=== PATIENT | male | born 1970 | race African-American/Black ===

== ENCOUNTER 2018-07-10 21:01 | Inpatient (IN) | payer OTHER ==
[~2018-07-10] VITALS: Ht 175.3 cm; Wt 97.5 kg
[2018-07-10 21:00] VITALS: BP 131/86
[2018-07-10 21:15] VITALS: BP 135/81
[2018-07-10 21:30] VITALS: BP 134/72
[2018-07-10 21:45] VITALS: BP 147/71
[2018-07-10 23:00] VITALS: BP 113/84
[2018-07-11] VITALS (24 sets, daily range): BP systolic 106–144; BP diastolic 64–94
[2018-07-11 02:59] LABS: CALCIUM 9.2 mg/dL (8.5-10.1); CREATININE 1.2 mg/dL (0.7-1.3); GFR 78.5; MAGNESIUM 2.1 mg/dL (1.8-2.4); POTASSIUM 3.8 mmol/L (3.5-5.1)
--- NOTE | 2018-07-11 05:27 | NUR ---
pt admitted at 2100 to ICU. Pt oriented to ICU unit and connected to monitor. Pt is pleasant and cooperative. All vital signs are stable NIH stroke scale completed on arrival with a score of 6. Pt is not on any drips of medications currently, will continue to monitor.
[2018-07-11 10:35] LABS: C-REACTIVE PROTEIN 1.8 mg/L (0-3.3)
[2018-07-11 10:36] LABS: CHOLESTEROL/HDL RATIO 6.1
[2018-07-11 10:43] LABS: HEMATOCRIT 45.9 % (39.0-53.0); HEMOGLOBIN 15.8 g/dL (13.0-17.5); RED BLOOD COUNT 5.46 x10^6/uL (4.30-5.70); RED CELL DISTRIBUTION WIDTH 13.8 % (11.5-14.5); WHITE BLOOD COUNT 4.3 x10^3/uL (4.0-11.0)
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
--- NOTE | 2018-07-11 13:42 | RAD ---
Clinical Indications: Left-sided hemiplegia. Exam : Carotid Duplex with Grayscale Ultrasound and Spectral and Color Doppler Analysis: PQRS Compliance Statement - Stenosis calculations for CT, MR and conventional angiography are based upon measurement of the distal ICA diameter in accordance with the NASCET methodology. Stenosis calculations for carotid ultrasound studies are derived from validated velocity criteria which are known to correlate with the NASCET methodology. Comparison study: None available. Findings: The common, internal and external carotid arteries were examined by grayscale, color and spectral Doppler ultrasound. Mild intimal thickening identified in the bilateral carotid bulbs and the proximal carotid arteries. Flow in both vertebral arteries was antegrade and normal. The following are the velocities and ratios in the carotid arteries on both sides: RIGHT ICA PV: 83cm/sec RIGHT CCA PV: 60cm/sec RIGHT ICA ED: 21cm/sec RIGHT IC/CCPV: 1.3 RIGHT VERTEBRAL: antegrade flow RIGHT % STENOSIS: Less than 50 percent LEFT ICA PV: 42cm/sec LEFT CCA PV: 114cm/sec LEFT ICA ED: 16cm/sec LEFT IC/CCPV: 0.3 LEFT VERTEBRAL: antegrade flow LEFT % STENOSIS: Less than 50 percent <50% ICA Stenosis: PSV < 125cm/s (EDV < 40cm/s; SVR < 2.0) 50-69% ICA Stenosis: PSV < 125-229cm/s (EDV 40-99cm/s; SVR 2.0-3.9) >70% ICA Stenosis: PSV > 230cm/s (EDV >100cm/s; SVR >4.0) Impression: No evidence of hemodynamically significant stenosis identified. Electronically signed by: Jorgito Mitchell MD (07/11/2018 1:39 PM) [facility]
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
--- NOTE | 2018-07-11 14:53 | NUR ---
Bedside Swallow Evaluation completed. Please refer to full report for additional information. Impressions: Mild-moderate oropharyngeal dysphagia w/ oral stage swallowing most significantly impacted by stroke. Pt w/ decreased ability to seal lips for retrieval and oral spill noted prior to swallow. Pt appears at low risk of aspiration for recommended diet of regular w/ thin liquids/no straws and swallow precautions. Pt able to recall swallow strategies and demonstrates ability to take small sips of thin liquids consistently w/o s/s aspiration. Aspiration risk is present w/ straw drinking of liquids d/t the effort required to retrieve fluid via straw and then pt's decreased control of liquid once achieved. Recommendations: Regular diet w/ thin liquids. No straws. Small drinks thin liquids, Sit upright 90*, small bites, alternated consistencies, slow rate, and upright after meals. Crush pills w/ puree. ST f/u for dysphagia. D/w [place], pt and guards, precautions posted.
--- NOTE | 2018-07-11 16:41 | EKG ---
[facility] [address] [place] [address] Test Date: 2018-07-11 Test Time: 16:32:19 Pat Name: GUILLERMO CHANEL Department: Room: [facility] Gender: M Seasonal Sales Associate: JESI : 1970 Requested By: OLVIN MACHADO Order Number: [id number] Reading MD: Deon Nolasoc Measurements Intervals [place] Rate: 83 P: 62 TX: 144 QRS: -28 QRSD: 92 T: 34 QT: 352 QTc: 419 Interpretive Statements SINUS RHYTHM LEFTWARD AXIS Electronically Signed On 07-31-2018 12:42:40 CDT by Deon Nolasco
[2018-07-11] MEDS: ATORVASTATIN CALCIUM 40 MG TABLET. PO SCH (21:07)
[2018-07-11] MEDS: ASPIRIN 325 MG TABLET PO SCH (21:07)
[2018-07-11] MEDS: LORazepam 0.5 MG TABLET PO PRN (22:46)
--- NOTE | 2018-07-11 23:56 | PN ---
DATE: 07/11/2018 SUBJECTIVE: The patient is a 48-year-old -Faroese male patient, an inmate at [facility], who presented yesterday to the Emergency Room with right-sided facial droop and left-sided weakness. CT scan was negative for intracranial hemorrhage and he was treated with TPA as his NIH score was 8. His CT angio was negative. He was transferred to [facility] as per protocol. When I saw him this morning, he was awake, alert, continued to have slurring of speech, but he is able to move his left upper and left lower extremity. He was seen by the Speech Therapy and apparently he continued to be high aspiration and therefore we will keep him n.p.o. PHYSICAL EXAMINATION: GENERAL: When I examined him this morning, he looked well and was clearly in no apparent respiratory distress, somewhat pale, but no jaundice, cyanosis, or thyromegaly. No jugular venous distension. No lower limb edema. VITAL SIGNS: Her heart rate was 73, blood pressure was 134/68, temperature was 98.4, respiratory rate was 15 and oxygen saturation was 99%. HEAD, EYES, EARS, NOSE AND THROAT: He is normocephalic, atraumatic. NECK: Supple. HEART: Showed normal first and second heart sounds with no gallop, rub or murmur. CHEST: Clear to auscultation. No crepitation or rhonchi. ABDOMEN: Distended, soft, nontender. No guarding or rigidity. No organomegaly. All hernial orifices intact. Bowel sounds normal. NEUROLOGIC: He was awake, alert, responding appropriately. He has continued to have left-sided facial droop and left-sided hemiparesis. 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 PLAN: To arrange for bilateral carotid Dopplers and echocardiogram with bubble study. Check his lipid profile. We have consulted the Physical Therapy, Occupational Therapy, Speech Therapy as well as the neurologist. OLVIN MACHADO MD DR: STEPHON/sulaiman JOB#: [id number] / [id number]
[2018-07-12] VITALS (15 sets, daily range): BP systolic 113–147; BP diastolic 68–100
[2018-07-12 04:24] LABS: HEMATOCRIT 45.9 % (39.0-53.0); HEMOGLOBIN 15.4 g/dL (13.0-17.5); RED BLOOD COUNT 5.46 x10^6/uL (4.30-5.70); RED CELL DISTRIBUTION WIDTH 13.5 % (11.5-14.5); WHITE BLOOD COUNT 4.6 x10^3/uL (4.0-11.0)
[2018-07-12 04:47] LABS: ALBUMIN 4.3 g/dL (3.4-5.0); ALBUMIN/GLOBULIN RATIO 1.2 (1.0-1.7); CALCIUM 9.6 mg/dL (8.5-10.1); GFR 96.9; POTASSIUM 3.7 mmol/L (3.5-5.1); TOTAL BILIRUBIN 1.6 mg/dL (0.2-1.0)
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
[2018-07-12] MEDS: ASPIRIN 325 MG TABLET PO SCH (09:28)
[2018-07-12] MEDS: LORazepam 0.5 MG TABLET PO PRN ×2 (09:38→20:55)
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
--- NOTE | 2018-07-12 13:57 | RAD ---
CT HEAD INDICATION: Left-sided weakness COMPARISON: 07/10/2018 Exposure: One or more of the following individualized dose reduction techniques were utilized for this examination: 1. Automated exposure control 2. Adjustment of the mA and/or kV according to patient size 3. Use of iterative reconstruction technique TECHNIQUE: 5 mm contiguous axial images were obtained from the skull base to the vertex in both bone and soft tissue algorithm. FINDINGS: No abnormal attenuation within the brain parenchyma. No evidence of acute intracranial hemorrhage. No extra-axial fluid collections. No mass effect or midline shift. Ventricular size is appropriate. Basal cisterns are patent. No fractures identified.Johnson-white differentiation is preserved.Globes and orbits are within normal limits. Paranasal sinuses and mastoid air cells are clear. IMPRESSION: No acute intracranial findings. Electronically signed by: Jorgito Mitchell MD (07/12/2018 1:54 PM) [facility]
--- NOTE | 2018-07-12 14:34 | NUR ---
Pt. transferred up to 6th floor from ICU around 1340. Pt. made comfortable and oriented to unit and hospital policies. Vital signs checked and head to toe assessment completed by this nurse. Pt. had a stomach spasm at time of assessment. Spasm and solid mass-like structure felt by this nurse. This nurse will call to inform MD. NIH stroke scale completed by 6S CN. Will continue to monitor.
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
--- NOTE | 2018-07-12 15:31 | NUR ---
MD notified about RUQ abdominal pain/spasm and palpable mass. Orders placed. Will continue to monitor.
[2018-07-12] MEDS ORDERED: IOHEXOL 240 MG/ML 50ML VIAL. PO ONE (19:30)
[2018-07-12] MEDS ORDERED: CONTRAST GIVEN. MC PRN (19:45)
--- NOTE | 2018-07-12 19:47 | RAD ---
CT ABD PEL W/ORAL CONTRST ONLY dated 07/12/2018 3:28 PM Indication: Pain and possible mass. Comparison: CT of the abdomen and pelvis without IV contrast 07/12/2018. Reason for exam: Abdominal pain and palpable mass in the right upper quadrant. Patient ingested oral contrast. No IV contrast was given. CT images were obtained. Exposure: One or more of the following individualized dose reduction techniques were utilized for this examination: 1. Automated exposure control 2. Adjustment of the mA and/or kV according to patient size 3. Use of iterative reconstruction technique. FINDINGS: The lung bases are clear. The liver and spleen are homogeneous in density and normal in configuration. Evaluation of the solid organs is limited without IV contrast. The kidneys show no mass or obstruction. There is a 3 mm calcination in the mid left kidney. The adrenal glands are not enlarged. The pancreas appears normal. No retroperitoneal or mesenteric adenopathy is seen. There is no apparent abdominal soft tissue mass or inflammatory process. Images through the pelvis show no abnormality of the distal ureters or bladder. No pelvic or inguinal adenopathy is seen. There is no apparent pelvic mass or inflammatory process. A normal appendix is thought to be seen extending medially from the cecum. IMPRESSION: No apparent acute abnormality. No evidence of abdominal mass. Technique: One or more of the following individualized dose reduction techniques were utilized for this examination: 1. Automated exposure control 2. Adjustment of the mA and/or kV according to patient size 3. Use of iterative reconstruction technique Findings: IMPRESSION: Electronically signed by: Alhaji Ferrari Jr., MD (07/12/2018 7:44 PM) [facility]
[2018-07-12] MEDS: ATORVASTATIN CALCIUM 40 MG TABLET. PO SCH (20:55)
--- NOTE | 2018-07-12 21:32 | PN ---
DATE: 07/12/2018 SUBJECTIVE: The patient is resting, propped up in bed, no apparent distress. He is definitely much improved. He is now able to eat and drink. His mobility has improved, although he continued to have left-sided facial droop. PHYSICAL EXAMINATION: GENERAL: When I examined him, he looked well and was clearly in no apparent respiratory distress. No pallor, jaundice, cyanosis, or thyromegaly. No jugular venous distension. No lower limb edema. VITAL SIGNS: Her heart rate was 100, blood pressure was 114/90, temperature was 98.5, respiratory rate 20, and oxygen saturation was 100%. HEAD, EYES, EARS, NOSE AND THROAT: Showed normocephalic, atraumatic. NECK: Supple. HEART: Showed normal first and second heart sounds. No gallop, rub or murmur. CHEST: Clear to auscultation. No crepitation or rhonchi. ABDOMEN: Distended, soft, nontender. No guarding or rigidity. No organomegaly. All hernial orifices intact. Bowel sounds normal. NEUROLOGIC: He is definitely awake, alert, responding appropriately. He has right-sided facial droop. His left-sided weakness is much improved compared to yesterday. His intake and output are incompletely recorded. LABORATORY DATA: As of this morning showed serum sodium 138, potassium 3.7, chloride 101, bicarbonate 24, anion gap of 13, BUN 23, creatinine 1, estimated GFR was 96 mL per minute, glucose 101, calcium was 9.6, magnesium was 1.6. His total bilirubin was 1.6. AST, ALT, alkaline phosphatase were normal. His total protein was 8, albumin was 4.3. His triglycerides 95, total cholesterol 236, LDL was 178, HDL cholesterol was 39 and the ratio was 6.1. His TSH was normal 0.985. White cell count was 4600, hemoglobin 15, hematocrit 45, MCV 84 and platelet count 349,000. She has had bilateral Doppler ultrasound, which showed no evidence of hemodynamically significant stenosis identified. Scheduled for MRI of the brain as well as an echocardiogram with bubble study, results of which is still pending. ASSESSMENT AND PLAN: Cerebrovascular accident with left upper and lower extremity weakness with slurred speech, status post TPA, hyperlipidemia, obesity. The patient has also arrhythmias that goes in and out. Plan is to await MRI as well as echocardiogram with bubble study and obviously if the neurologist and air pollution auditor all give him discharge, I will discharge him later today. OLVIN MACHADO MD DR: STEPHON/sulaiman JOB#: [id number] / [id number]
[2018-07-12 22:51] LABS: BARBITURATES NEG (NEG); BENZODIAZEPINES NEG (NEG); CANNABINOIDS NEG (NEG); COCAINE NEG (NEG); METHADONE NEG (NEG); OPIATES NEG (NEG); PHENCYCLIDINE NEG (NEG)
[2018-07-12 22:54] LABS: AMPHETAMINE/METHAMPHETAMINE NEG (NEG)
[2018-07-13 03:19] VITALS: BP 152/75
[2018-07-13 07:00] VITALS: BP 113/70
[2018-07-13] MEDS: ASPIRIN 325 MG TABLET PO SCH (08:07)
--- NOTE | 2018-07-13 08:17 | CARD ---
MR#: [id number] Date of Study: 07/12/2018 Ordering Physician: OLVIN MACHADO, Referring Physician: OLVIN MACHADO Tech: Zenia Nelson RDCS APPROVED REPORT EXAM: Two-dimensional echocardiogram with contrast. Other Information Quality : GoodHR: 80bpm Rhythm : NSR INDICATION Echo Enhancing Agent Indication: Rule Out Septal Defect Agent/Amount Used: Agitated Saline 18mL 2D DIMENSIONS Left Atrium(2D)3.4 (1.6-4.0cm)IVSd0.7 (0.7-1.1cm) Aortic Root(2D)2.5 (2.0-3.7cm)LVDd5.0 (3.9-5.9cm) LVOT Diameter2.3 (1.8-2.4cm)PWd0.8 (0.7-1.1cm) LVDs3.7 (2.5-4.0cm)FS (%) 25.8 % SV59.3 mlLVEF(%)50.5 (>50%) Aortic Valve AoV Peak Ulices.81.3cm/sAoV VTI11.4cm AO Peak GR.2.6mmHgLVOT Peak Ulices.77.7cm/s AO Mean GR.2mmHgAVA (VMAX)4.11cm2 LISA (VTI)4.10cm2 Mitral Valve MV E Nbluajxn19.0cm/sMV DECEL [id number] MV A Psjgcvrc68.5cm/sE/A Ratio0.7 MV A Xpgyccei11cy TDI Lateral E' P. V9.00cm/sMedial E' P. V9.00cm/s E/Lateral E'4.0E/Medial E'4.0 Pulmonary Valve PV Peak Hchdjyah93.1cm/s Tricuspid Valve TR P. Caqopjsj252pe/sRAP JSYAAYXT5dqNy TR Peak Gr.03ozExOVSD70laSn Pulmonary Vein S1 Jrcrndws80.7cm/sD2 Erqyrxgj81.3cm/s LEFT VENTRICLE The left ventricle is normal size. There is normal left ventricular wall thickness. The left ventricu lar systolic function is low normal. The ejection fraction is estimated at 50%. Abnormal septal motio n probably from conduction abnormality. Transmitral Doppler flow pattern is Grade I-abnormal relaxati on pattern. No left ventricle thrombus noted on this study. There is no ventricular septal defect vis ualized. There is no left ventricular aneurysm. There is no mass noted in the left ventricle. RIGHT VENTRICLE The right ventricle is normal size. There is normal right ventricular wall thickness. The right ventr icular systolic function is normal. ATRIA The left atrium size is normal. The right atrium size is normal. The interatrial septum is intact wit h no evidence for an atrial septal defect or patent foramen ovale as noted on 2-D or Doppler imaging. AORTIC VALVE The aortic valve is normal in structure and function. Doppler and Color Flow revealed no significant aortic regurgitation. There is no significant aortic valvular stenosis. There is no aortic valvular v egetation. MITRAL VALVE Anterior leaflet of mitral valve appears thickened. There is no evidence of mitral valve prolapse. Th ere is no mitral valve stenosis. Doppler and Color Flow revealed trace mitral valve regurgitation not ed. TRICUSPID VALVE The tricuspid valve is normal in structure and function. Doppler and Color Flow revealed trace tricus pid regurgitation. There is no tricuspid valve prolapse or vegetation. There is no tricuspid valve st enosis. PULMONIC VALVE The pulmonary valve is normal in structure and function. Doppler and Color Flow revealed no pulmonic valvular regurgitation. There is no pulmonic valvular stenosis. GREAT VESSELS The aortic root is normal in size. The ascending aorta is normal in size. The pulmonary artery is nor mal. The IVC is normal in size and collapses >50% with inspiration. PERICARDIAL EFFUSION There is no pleural effusion. There is no evidence of significant pericardial effusion. Critical Notification Critical Value: No <Conclusion> The left ventricular systolic function is low normal. The ejection fraction is estimated at 50%. Abnormal septal motion probably from conduction abnormality. Transmitral Doppler flow pattern is Grade I-abnormal relaxation pattern. Trace mitral valve regurgitation noted. Trace tricuspid regurgitation. There is no evidence of significant pericardial effusion. Bubble study negative for interatrial shunt. Recommend MARLY if clinical suspicion for intracardiac source of embolus is high. Signed by : Deon Nolasco, Electronically Approved : 07/13/2018 08:17:16
[2018-07-13 11:00] VITALS: BP 113/72
--- NOTE | 2018-07-13 14:04 | PDOC ---
LAUREEN ROBERSON DRIVER/REFUSE COLLECTOR 07/13/18 1404: CARDIO Progress Notes Date and Time Date of Service 07/13/2018 Time of Evaluation 1340 Subjective Subjective: No Chest Pain, No shortness of breath, No Palpitations Vitals Vitals Vital Signs Date Time Temp Pulse Resp B/P (MAP) Pulse Ox O2 Delivery O2 Flow Rate FiO2 07/13/18 11:00 98.1 95 18 113/72 (86) 96 Room Air 98.1 Weight Weight [ ] Input and Output Intake and Output Intake and Output 07/13/18 07:00 Intake Total 1040 ml Output Total 650 ml Balance 390 ml Intake Oral 1040 ml Output Urine Total 650 ml Laboratory Labs Laboratory Tests Test 07/12/18 22:15 Urine Opiates Screen Neg (NEG) Urine Methadone Screen Neg (NEG) Urine Barbiturates Neg (NEG) Urine Phencyclidine Screen Neg (NEG) Urine Amphetamine/Methamphetamine Neg (NEG) Urine Benzodiazepines Screen Neg (NEG) Urine Cocaine Screen Neg (NEG) Urine Cannabinoids Screen Neg (NEG) Urine Ethyl Alcohol Neg (NEG) Physical Exam HEENT: Neck Supple W Full Motion Chest: Symmetric LUNGS: Clear to Auscultation Heart: S1S2, RRR (SR) Abdomen: Soft N/T Extremities: No Calf Tenderness Neurology: alert, oriented, follow commands Assessment Assessment 1. Acute MCA CVA s/p tPA: no intraatrial shunting. EF and WM nml. Neuro Symptoms better. 2. PAT: with aberrancy. Maintain SR. No sustained episodes 3. HTN: well controlled 4. HLP: statin Recommendations 1. ASA, statin. 2. Will arrange for MCOT (Zio patch) 3. Follow up in 4 weeks 4. BB is an option if ectopy is persistent. EZEKIEL BECK MD 07/13/18 1723: CARDIO Progress Notes Assessment Assessment Patient seen and examined. Agree with CALENDER MACHINE OPERATOR's assessment and plan. 2-D echo showed normal LV systolic function Telemetry did not show any arrhythmia so far Agree with event monitor as an outpatient LAUREEN ROBERSON APRN July 13, 2018 14:04 EZEKIEL BECK MD July 13, 2018 17:23
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
[2018-07-13 15:00] VITALS: BP 125/73
[2018-07-13 19:05] VITALS: BP 143/85
[2018-07-13] MEDS: ATORVASTATIN CALCIUM 40 MG TABLET. PO SCH (21:31)
[2018-07-13 23:02] VITALS: BP 135/86
[2018-07-14 03:05] VITALS: BP 101/74
[2018-07-14 07:00] VITALS: BP 112/66
[2018-07-14] MEDS: ASPIRIN 325 MG TABLET PO SCH (08:29)
[2018-07-14 11:00] VITALS: BP 104/68
[2018-07-14] MEDS ORDERED: ATOR40TA PO (11:11)
[2018-07-14] MEDS ORDERED: ASPI325T8 PO (11:11)
--- NOTE | 2018-07-14 11:12 | DISCH ---
DISCHARGE INSTRUCTIONS Condition on Discharge Condition on Discharge: Stable Activity After Discharge Activity Instructions for Disc: No restrictions Weight Bearing Status after Di: No restrictions Diet after Discharge Diet after Discharge: Regular Contacting the DR. after DC Call your doctor for: If your condition worsens Treatment/Equipment after DC Adaptive Equipment Issued: None OLVIN MACHADO MD July 14, 2018 11:12
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
--- NOTE | 2018-07-14 13:00 | NUR ---
REPORT CALLED TO KAMRAN AT [facility], QUESTIONS AND CONCERNS ANSWERED, SALINE LOCK REMOVED FROM LEFT HAND, BANDAGE APPLIED. DISCHARGE PAPERWORK COMPLETED AND PLACED IN DC ENVELOPE, EMOTIONAL SUPPORT GIVEN TO THE PATIENT.
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
== END 2018-07-14 14:05 | DRG 65 ==
LOC: EEVIPCON 21:01 → 1 WEST ICU 21:01 → 6 SOUTH 07-12 13:48
PROVIDERS: ADMIT Internal Medicine; ATTEND Internal Medicine
DX: I63.519 Cerebral infarction due to unspecified occlusion or stenosis of unspecified middle cerebral artery (principal); G81.91 Hemiplegia, unspecified affecting right dominant side; R47.81 Slurred speech; E78.5 Hyperlipidemia, unspecified; E66.9 Obesity, unspecified; I10 Essential (primary) hypertension; R29.707 NIHSS score 7; E78.00 Pure hypercholesterolemia, unspecified; F12.90 Cannabis use, unspecified, uncomplicated; R29.810 Facial weakness; R13.10 Dysphagia, unspecified; K21.9 Gastro-esophageal reflux disease without esophagitis; Z88.0 Allergy status to penicillin; Z68.31 Body mass index [BMI] 31.0-31.9, adult; Z79.899 Other long term (current) drug therapy; Z79.82 Long term (current) use of aspirin
CPT/HCPCS: 36415; 70450; 73552; 74176; 80048; 80053; 80061; 80307; 82607; 83735; 84443; 84484; 85027; 85651; 86140; 87641; 93005; 93306; 93880; Q9966; 92526; 92610; 97530; 97535